=== PATIENT | female | born 1950 | race Caucasian/White ===

== ENCOUNTER 2017-11-29 08:07 | Inpatient (IN) | payer OTHER ==
[2017-11-29] MEDS: D5W-0.45 NACL + KCL 20 MEQ 1,000 ML IV (09:26)
[2017-11-29] MEDS: ONDANSETRON 4 MG INJ IV (09:26)
[2017-11-29] MEDS: HYDROmorphONE 1 MG/ML SYG IV (09:26)
[2017-11-29] MEDS ORDERED: ONDANSETRON 4 MG INJ IV ×2 (09:30→10:30)
[2017-11-29] MEDS ORDERED: ACETAMINOPHEN 325 MG TAB PO (09:30)
[2017-11-29] MEDS ORDERED: NITROGLYCERIN (SL) 0.4 MG TAB SL (10:00)
[2017-11-29] MEDS: WARFARIN 5 MG TAB PO ×2 (10:00→17:21)
[2017-11-29] MEDS: DOCUSATE SODIUM 100 MG CAP PO ×3 (10:00→22:05)
[2017-11-29] MEDS: FERROUS SULFATE (EC) 325 MG TAB PO ×3 (10:00→22:05)
[2017-11-29] MEDS: VENLAFAXINE (XR) 75 MG CAP PO ×2 (10:00→16:50)
[2017-11-29 10:48] LABS: ADD MAN DIFF? NO
[2017-11-29 10:51] LABS: BASOPHILS % 0.2 % (0.0-2.0); EOSINOPHILS # 0.1 10^3/ul (0.0-0.5); EOSINOPHILS % 1.2 % (0.0-7.0); HEMATOCRIT 38.9 % (37.0-47.0); HEMOGLOBIN 12.4 g/dl (12.0-16.0); LYMPHOCYTES # 0.6 10^3/ul (0.8-2.9); LYMPHOCYTES % 7.2 % (15.0-51.0); MEAN CORPUSCULAR HEMOGLOBIN 27.6 pg (29.0-33.0); MEAN CORPUSCULAR HGB CONC 31.9 g/dl (32.0-37.0); MEAN CORPUSCULAR VOLUME 86.6 fl (82.0-101.0); MEAN PLATELET VOLUME 10.6 fl (7.4-10.4); MONOCYTE # 0.2 10^3/ul (0.3-0.9); MONOCYTES % 2.9 % (0.0-11.0); NEUTROPHIL # 7.3 10^3/ul (1.6-7.5); NEUTROPHILS % 88.1 % (39.0-77.0); PLATELET COUNT 250 10^3/UL (140-415); RED BLOOD COUNT 4.49 10^6/ul (4.20-5.40); RED CELL DISTRIBUTION WIDTH 14.6 % (11.5-14.5)
[2017-11-29 10:51] LABS: WHITE BLOOD COUNT 8.3 10^3/ul (4.8-10.8)
[2017-11-29 11:12] LABS: INR 1.93; PROTIME 22.5 Sec (11.9-14.9); PT RATIO 1.8
[2017-11-29 11:13] LABS: ALANINE AMINOTRANSFERASE 39 IU/L (13-69); ALBUMIN 3.7 g/dl (3.3-4.9); ALKALINE PHOSPHATASE 65 IU/L (42-121); ANION GAP 13 (8-16); ASPARTATE AMINO TRANSFERASE 23 IU/L (15-46); BILIRUBIN,INDIRECT 1.3 mg/dl (0-1.1); BILIRUBIN,TOTAL 1.3 mg/dl (0.2-1.3); BLOOD UREA NITROGEN 11 mg/dl (7-20); CARBON DIOXIDE 27 mmol/L (21-31); CHLORIDE 108 mmol/L (97-110); CREATINE KINASE 58 IU/L (23-200); CREATININE 0.82 mg/dl (0.44-1.00); GLUCOSE 101 mg/dl (70-220); POTASSIUM 3.9 mmol/L (3.5-5.1); SODIUM 144 mmol/L (135-144); TOTAL PROTEIN 6.9 g/dl (6.1-8.1)
[2017-11-29 11:14] LABS: MAGNESIUM 1.9 mg/dl (1.7-2.5)
[2017-11-29 11:20] LABS: CK INDEX 1.8; CK-MB 1.02 ng/ml (0.0-2.4); TROPONIN-I 0.071 ng/ml (0.00-0.12)
[2017-11-29 11:21] LABS: TROPONIN-I 0.073 ng/ml (0.00-0.12)
[2017-11-29] MEDS: GABAPENTIN 300 MG CAP PO ×3 (13:00→22:05)
[2017-11-29] MEDS: METOCLOPRAMIDE 10 MG INJ IV ×2 (14:24→18:59)
[2017-11-29] MEDS: morphine 2 MG INJ IV (15:25)
[2017-11-29] MEDS: SOD CHLORIDE 0.9% 1,000 ML IV ×2 (15:34→23:00)
[2017-11-29 15:50] LABS: CREATINE KINASE 77 IU/L (23-200)
[2017-11-29 16:01] LABS: CK INDEX 1.2; CK-MB 0.95 ng/ml (0.0-2.4); TROPONIN-I 0.061 ng/ml (0.00-0.12)
[2017-11-29] MEDS: ACETAMINOPHEN 325 MG TAB PO (16:50)
[2017-11-29] MEDS ORDERED: DILTIAZEM-D5W 125MG/125ML DRIP 125 ML IV (18:00)
[2017-11-29] MEDS: METOPROLOL 5 MG INJ IV ×2 (19:01→21:35)
[2017-11-29] MEDS: ATORVASTATIN 10 MG TAB PO (21:00)
[2017-11-30] MEDS: ATORVASTATIN 10 MG TAB PO (00:13)
[2017-11-30] MEDS: METOCLOPRAMIDE 10 MG INJ IV ×2 (00:33→06:15)
[2017-11-30 05:48] LABS: ADD MAN DIFF? NO
[2017-11-30 05:54] LABS: ABNORMAL IP MESSAGE 1; BASOPHILS % 0.3 % (0.0-2.0); EOSINOPHILS % 0.6 % (0.0-7.0); HEMATOCRIT 36.5 % (37.0-47.0); HEMOGLOBIN 11.5 g/dl (12.0-16.0); LYMPHOCYTES # 0.3 10^3/ul (0.8-2.9); LYMPHOCYTES % 4.5 % (15.0-51.0); MEAN CORPUSCULAR HEMOGLOBIN 27.7 pg (29.0-33.0); MEAN CORPUSCULAR HGB CONC 31.5 g/dl (32.0-37.0); MEAN PLATELET VOLUME 11.2 fl (7.4-10.4); MONOCYTE # 0.2 10^3/ul (0.3-0.9); MONOCYTES % 3.4 % (0.0-11.0); NEUTROPHIL # 5.6 10^3/ul (1.6-7.5); NEUTROPHILS % 90.9 % (39.0-77.0); PLATELET COUNT 218 10^3/UL (140-415); RED BLOOD COUNT 4.15 10^6/ul (4.20-5.40); RED CELL DISTRIBUTION WIDTH 14.5 % (11.5-14.5)
[2017-11-30 05:54] LABS: WHITE BLOOD COUNT 6.2 10^3/ul (4.8-10.8)
[2017-11-30 05:55] LABS: POSITIVE DIFF @See below
[2017-11-30] MEDS: PANTOPRAZOLE (EC) 40 MG TAB PO (06:15)
[2017-11-30 06:19] LABS: ANION GAP 15 (8-16); BLOOD UREA NITROGEN 13 mg/dl (7-20); CARBON DIOXIDE 19 mmol/L (21-31); CHLORIDE 112 mmol/L (97-110); CREATININE 0.78 mg/dl (0.44-1.00); GLUCOSE 83 mg/dl (70-220); MAGNESIUM 1.9 mg/dl (1.7-2.5); POTASSIUM 3.7 mmol/L (3.5-5.1); SODIUM 142 mmol/L (135-144)
[2017-11-30 06:49] LABS: INR 1.94; PROTIME 22.6 Sec (11.9-14.9); PT RATIO 1.8
[2017-11-30 06:50] LABS: PARTIAL THROMBOPLASTIN TIME 64.3 Sec (25.0-35.0)
[2017-11-30] MEDS: ASPIRIN 81 MG TAB PO (08:53)
[2017-11-30] MEDS: LEVOTHYROXINE 50 MCG TAB PO (08:54)
[2017-11-30] MEDS: VENLAFAXINE (XR) 75 MG CAP PO (08:54)
[2017-11-30] MEDS: GABAPENTIN 300 MG CAP PO ×3 (08:54→20:38)
[2017-11-30] MEDS: DILTIAZEM (CD) 180 MG CAP PO (08:54)
[2017-11-30] MEDS: FERROUS SULFATE (EC) 325 MG TAB PO ×2 (08:54→20:38)
[2017-11-30] MEDS: ATENOLOL 25 MG TAB PO (08:55)
[2017-11-30] MEDS: DOCUSATE SODIUM 100 MG CAP PO ×2 (10:00→20:39)
[2017-11-30 10:36] LABS: LACTIC ACID 0.9 mmol/L (0.5-2.0)
[2017-11-30] MEDS: SOD CHLORIDE 0.9% 1,000 ML IV (16:35)
[2017-11-30] MEDS ORDERED: METOPROLOL 5 MG INJ IV (18:30)
[2017-11-30] MEDS: WARFARIN 5 MG TAB PO (20:38)
[2017-11-30] MEDS: ONDANSETRON 4 MG INJ IV (23:39)
[2017-12-01] MEDS: PANTOPRAZOLE (EC) 40 MG TAB PO (05:40)
[2017-12-01 06:24] LABS: ADD MAN DIFF? NO
[2017-12-01 06:25] LABS: WHITE BLOOD COUNT 3.3 10^3/ul (4.8-10.8)
[2017-12-01 06:25] LABS: ABNORMAL IP MESSAGE 1; BASOPHILS % 0.6 % (0.0-2.0); EOSINOPHILS # 0.2 10^3/ul (0.0-0.5); EOSINOPHILS % 5.2 % (0.0-7.0); HEMATOCRIT 33.4 % (37.0-47.0); HEMOGLOBIN 10.7 g/dl (12.0-16.0); LYMPHOCYTES # 0.5 10^3/ul (0.8-2.9); LYMPHOCYTES % 14.3 % (15.0-51.0); MEAN CORPUSCULAR HEMOGLOBIN 27.6 pg (29.0-33.0); MEAN CORPUSCULAR VOLUME 86.1 fl (82.0-101.0); MEAN PLATELET VOLUME 10.4 fl (7.4-10.4); MONOCYTE # 0.2 10^3/ul (0.3-0.9); MONOCYTES % 6.1 % (0.0-11.0); NEUTROPHIL # 2.4 10^3/ul (1.6-7.5); NEUTROPHILS % 73.5 % (39.0-77.0); PLATELET COUNT 206 10^3/UL (140-415); RED BLOOD COUNT 3.88 10^6/ul (4.20-5.40); RED CELL DISTRIBUTION WIDTH 14.3 % (11.5-14.5)
[2017-12-01 06:28] LABS: POSITIVE DIFF @See below
[2017-12-01] MEDS: LEVOTHYROXINE 50 MCG TAB PO (06:37)
[2017-12-01] MEDS: SOD CHLORIDE 0.9% 1,000 ML IV ×2 (06:37)
[2017-12-01 06:45] LABS: INR 2.49; PROTIME 27.6 Sec (11.9-14.9); PT RATIO 2.2
[2017-12-01 06:46] LABS: INR 2.12; PROTIME 24.3 Sec (11.9-14.9); PT RATIO 1.9
[2017-12-01 06:50] LABS: PARTIAL THROMBOPLASTIN TIME 74.2 Sec (25.0-35.0)
[2017-12-01 07:31] LABS: ALANINE AMINOTRANSFERASE 37 IU/L (13-69); ALBUMIN 3.3 g/dl (3.3-4.9); ALBUMIN/GLOBULIN RATIO 1.06; ALKALINE PHOSPHATASE 73 IU/L (42-121); ANION GAP 14 (8-16); ASPARTATE AMINO TRANSFERASE 27 IU/L (15-46); BILIRUBIN,INDIRECT 0.3 mg/dl (0-1.1); BILIRUBIN,TOTAL 0.3 mg/dl (0.2-1.3); BLOOD UREA NITROGEN 9 mg/dl (7-20); CALCIUM 8.7 mg/dl (8.4-10.2); CARBON DIOXIDE 22 mmol/L (21-31); CHLORIDE 110 mmol/L (97-110); CREATININE 0.68 mg/dl (0.44-1.00); GLUCOSE 92 mg/dl (70-220); MAGNESIUM 1.9 mg/dl (1.7-2.5); PHOSPHORUS 1.9 mg/dl (2.5-4.9); POTASSIUM 3.4 mmol/L (3.5-5.1); SODIUM 143 mmol/L (135-144); TOTAL PROTEIN 6.4 g/dl (6.1-8.1)
[2017-12-01 08:06] LABS: LACTIC ACID 1.1 mmol/L (0.5-2.0)
[2017-12-01] MEDS: FERROUS SULFATE (EC) 325 MG TAB PO ×2 (09:23→20:49)
[2017-12-01] MEDS: ASPIRIN 81 MG TAB PO (09:23)
[2017-12-01] MEDS: DOCUSATE SODIUM 100 MG CAP PO ×2 (09:24→21:03)
[2017-12-01] MEDS: GABAPENTIN 300 MG CAP PO ×3 (09:24→20:49)
[2017-12-01] MEDS: VENLAFAXINE (XR) 75 MG CAP PO (09:25)
[2017-12-01] MEDS: DILTIAZEM (CD) 180 MG CAP PO (09:28)
[2017-12-01] MEDS: ATENOLOL 25 MG TAB PO (09:29)
[2017-12-01] MEDS: CYANOCOBALAMIN 1000 MCG INJ SC (15:19)
[2017-12-01] MEDS: POTASSIUM CHLORIDE (SR) 20 MEQ TAB PO (17:55)
[2017-12-01] MEDS: WARFARIN 5 MG TAB PO (17:56)
[2017-12-01] MEDS: ATORVASTATIN 10 MG TAB PO (20:49)
[2017-12-01 22:37] LABS: ADD UMIC YES; UR ASCORBIC ACID NEGATIVE (NEGATIVE); UR BILIRUBIN (Dip) NEGATIVE (NEGATIVE); UR BLOOD (Dip) 1+ mg/dL (NEGATIVE); UR CLARITY CLEAR (CLEAR); UR COLOR YELLOW (YELLOW); UR GLUCOSE (Dip) NEGATIVE (NEGATIVE); UR KETONES (Dip) NEGATIVE (NEGATIVE); UR LEUKOCYTE ESTERASE (Dip) TRACE Leu/ul (NEGATIVE); UR MUCUS FEW /HPF (NONE SEEN); UR NITRITE (Dip) NEGATIVE (NEGATIVE); UR RBC 0 /HPF (0-5); UR SPECIFIC GRAVITY (Dip) 1.006 (1.003-1.030); UR TOTAL PROTEIN (Dip) NEGATIVE (NEGATIVE); UR UROBILINOGEN (Dip) NEGATIVE (NEGATIVE); UR WBC 1 /HPF (0-5)
[2017-12-01] MEDS: IBUPROFEN 600 MG TAB PO (23:52)
[2017-12-02] MEDS: PANTOPRAZOLE (EC) 40 MG TAB PO (06:30)
[2017-12-02] MEDS: LEVOTHYROXINE 50 MCG TAB PO (06:30)
[2017-12-02 07:54] LABS: INR 3.58; PROTIME 36.9 Sec (11.9-14.9); PT RATIO 2.9
[2017-12-02 07:56] LABS: PARTIAL THROMBOPLASTIN TIME 73.9 Sec (25.0-35.0)
[2017-12-02] MEDS: ASPIRIN 81 MG TAB PO (08:41)
[2017-12-02] MEDS: FERROUS SULFATE (EC) 325 MG TAB PO ×2 (08:43→20:18)
[2017-12-02] MEDS: VENLAFAXINE (XR) 75 MG CAP PO (08:43)
[2017-12-02] MEDS: DOCUSATE SODIUM 100 MG CAP PO (08:44)
[2017-12-02] MEDS: DILTIAZEM (CD) 180 MG CAP PO (08:44)
[2017-12-02] MEDS: ATENOLOL 25 MG TAB PO (08:44)
[2017-12-02] MEDS: GABAPENTIN 300 MG CAP PO ×3 (08:44→20:18)
[2017-12-02] MEDS: ATORVASTATIN 10 MG TAB PO (20:18)
[2017-12-02] MEDS: HYDROCODONE/APAP (5/325) TAB PO (21:49)
[2017-12-02] MEDS: ONDANSETRON 4 MG INJ IV (21:51)
[2017-12-03 06:29] LABS: ADD MAN DIFF? NO
[2017-12-03] MEDS: PANTOPRAZOLE (EC) 40 MG TAB PO (06:31)
[2017-12-03] MEDS: LEVOTHYROXINE 50 MCG TAB PO (06:31)
[2017-12-03 06:36] LABS: BASOPHILS % 0.7 % (0.0-2.0); EOSINOPHILS # 0.2 10^3/ul (0.0-0.5); EOSINOPHILS % 5.4 % (0.0-7.0); HEMATOCRIT 34.5 % (37.0-47.0); HEMOGLOBIN 10.9 g/dl (12.0-16.0); LYMPHOCYTES # 1.1 10^3/ul (0.8-2.9); LYMPHOCYTES % 26.1 % (15.0-51.0); MEAN CORPUSCULAR HEMOGLOBIN 27.8 pg (29.0-33.0); MEAN CORPUSCULAR HGB CONC 31.6 g/dl (32.0-37.0); MEAN PLATELET VOLUME 10.3 fl (7.4-10.4); MONOCYTE # 0.5 10^3/ul (0.3-0.9); MONOCYTES % 12.1 % (0.0-11.0); NEUTROPHIL # 2.4 10^3/ul (1.6-7.5); NEUTROPHILS % 55.5 % (39.0-77.0); PLATELET COUNT 223 10^3/UL (140-415); RED BLOOD COUNT 3.92 10^6/ul (4.20-5.40); RED CELL DISTRIBUTION WIDTH 14.5 % (11.5-14.5)
[2017-12-03 06:36] LABS: WHITE BLOOD COUNT 4.3 10^3/ul (4.8-10.8)
[2017-12-03 06:56] LABS: PROTIME 35.4 Sec (11.9-14.9); PT RATIO 2.8
[2017-12-03 06:58] LABS: INR 3.22; PROTIME 33.9 Sec (11.9-14.9); PT RATIO 2.6
[2017-12-03 07:28] LABS: PARTIAL THROMBOPLASTIN TIME 70.3 Sec (25.0-35.0)
[2017-12-03 07:40] LABS: ANION GAP 12 (8-16); BLOOD UREA NITROGEN 8 mg/dl (7-20); CALCIUM 8.9 mg/dl (8.4-10.2); CARBON DIOXIDE 28 mmol/L (21-31); CHLORIDE 110 mmol/L (97-110); CREATININE 0.64 mg/dl (0.44-1.00); GLUCOSE 92 mg/dl (70-220); POTASSIUM 3.5 mmol/L (3.5-5.1); SODIUM 146 mmol/L (135-144)
[2017-12-03] MEDS: VENLAFAXINE (XR) 75 MG CAP PO (09:07)
[2017-12-03] MEDS: FERROUS SULFATE (EC) 325 MG TAB PO ×2 (09:07→20:44)
[2017-12-03] MEDS: GABAPENTIN 300 MG CAP PO ×3 (09:07→20:44)
[2017-12-03] MEDS: ASPIRIN 81 MG TAB PO (09:07)
[2017-12-03] MEDS: ATENOLOL 25 MG TAB PO (09:08)
[2017-12-03] MEDS: DILTIAZEM (CD) 180 MG CAP PO (09:08)
[2017-12-03 12:15] LABS: PLATELET COUNT 235 10^3/UL (140-415)
[2017-12-03 12:31] LABS: INR 2.51; PROTIME 27.8 Sec (11.9-14.9); PT RATIO 2.2
[2017-12-03 12:32] LABS: PARTIAL THROMBOPLASTIN TIME 55.8 Sec (25.0-35.0)
[2017-12-03] MEDS: DOCUSATE SODIUM 100 MG CAP PO (12:33)
[2017-12-03] MEDS: HYDROCODONE/APAP (5/325) TAB PO (12:34)
[2017-12-03 12:58] LABS: THROMBIN TIME 13.3 SEC (13.8-19.1)
[2017-12-03] MEDS: ATORVASTATIN 10 MG TAB PO (20:44)
[2017-12-04] MEDS: PANTOPRAZOLE (EC) 40 MG TAB PO (05:24)
[2017-12-04 08:08] LABS: INR 1.74; PROTIME 20.7 Sec (11.9-14.9); PT RATIO 1.6
[2017-12-04] MEDS: LEVOTHYROXINE 50 MCG TAB PO (08:57)
[2017-12-04] MEDS: ASPIRIN 81 MG TAB PO (08:57)
[2017-12-04] MEDS: GABAPENTIN 300 MG CAP PO ×2 (08:58→14:45)
[2017-12-04] MEDS: FERROUS SULFATE (EC) 325 MG TAB PO (08:58)
[2017-12-04] MEDS: VENLAFAXINE (XR) 75 MG CAP PO (08:58)
[2017-12-04] MEDS: DOCUSATE SODIUM 100 MG CAP PO (08:58)
[2017-12-04] MEDS: DILTIAZEM (CD) 180 MG CAP PO (08:59)
[2017-12-04] MEDS: ATENOLOL 25 MG TAB PO (08:59)
[2017-12-04] MEDS: MAGNESIUM HYDROXIDE 30ML CUP PO (10:57)
[2017-12-04] MEDS: INFLUENZA VIRUS VACCINE 0.5 ML SYG IM* (13:12)
[2017-12-04] MEDS: NA PHOSPHATE/BIPHOS 133 ML ENEMA PR (14:45)
[2017-12-04] MEDS: WARFARIN 5 MG TAB PO (17:59)
== END 2017-12-04 18:22 | disposition home or self-care (01) | DRG 389 ==
LOC: E/R 08:07 → MS3 20:05 → MS4 11-30 18:50 → MS3 09:27
DX: K56.51 Intestinal adhesions [bands], with partial obstruction (principal); I13.0 Hypertensive heart and chronic kidney disease with heart failure and stage 1 through stage 4 chronic kidney disease, or unspecified chronic kidney disease; I48.2 Chronic atrial fibrillation; I50.32 Chronic diastolic (congestive) heart failure; G62.9 Polyneuropathy, unspecified; E55.9 Vitamin D deficiency, unspecified; E53.8 Deficiency of other specified B group vitamins; F32.9 Major depressive disorder, single episode, unspecified; N18.2 Chronic kidney disease, stage 2 (mild); K21.9 Gastro-esophageal reflux disease without esophagitis; E78.5 Hyperlipidemia, unspecified; E03.9 Hypothyroidism, unspecified; D63.1 Anemia in chronic kidney disease; K29.70 Gastritis, unspecified, without bleeding; J45.40 Moderate persistent asthma, uncomplicated; K59.09 Other constipation; K56.690 Other partial intestinal obstruction; Z79.82 Long term (current) use of aspirin; Z79.01 Long term (current) use of anticoagulants; Z86.718 Personal history of other venous thrombosis and embolism; Z90.49 Acquired absence of other specified parts of digestive tract
CPT/HCPCS: 80048; 80053; 80076; 81001; 82550; 82553; 83605; 83735; 84100; 84443; 84484; 85025; 85049; 85384; 85610; 85613; 85670; 85730; 87040; 87075; 87086; 93005; 93306; 96361; 96374; 96375; 96376; 99285-25

== ENCOUNTER 2018-03-16 08:23 | Inpatient (IN) | payer OTHER ==
[2018-03-16] MEDS ORDERED: ZOLPIDEM 5 MG TAB PO (11:30)
[2018-03-16] MEDS ORDERED: morphine 2 MG INJ IV (11:30)
[2018-03-16] MEDS ORDERED: NACL 0.9% 3 ML SYG IV (11:30)
[2018-03-16] MEDS ORDERED: BISACODYL (EC) 5 MG TAB PO (11:30)
[2018-03-16] MEDS ORDERED: HYDROCODONE/APAP (5/325) TAB PO (11:30)
[2018-03-16] MEDS ORDERED: DOCUSATE SODIUM 100 MG CAP PO (11:30)
[2018-03-16] MEDS ORDERED: ACETAMINOPHEN 325 MG TAB PO (11:30)
[2018-03-16] MEDS ORDERED: ONDANSETRON 4 MG INJ IV (11:30)
[2018-03-16] MEDS ORDERED: LOPERAMIDE 2 MG CAP PO (11:30)
[2018-03-16] MEDS ORDERED: NITROGLYCERIN (SL) 0.4 MG TAB SL (11:30)
[2018-03-16] MEDS: VENLAFAXINE (XR) 75 MG CAP PO (12:33)
[2018-03-16] MEDS: DILTIAZEM (CD) 240 MG CAP PO (12:34)
[2018-03-16] MEDS: GABAPENTIN 300 MG CAP PO ×2 (12:34→21:05)
[2018-03-16] MEDS: ATENOLOL 25 MG TAB PO (12:34)
[2018-03-16] MEDS: CEFTRIAXONE 1 GM/50 ML (PMX) 50 ML IVPB (12:37)
[2018-03-16 12:49] LABS: INR 3.06; PROTIME 32.5 Sec (11.9-14.9); PT RATIO 2.5
[2018-03-16 13:01] LABS: TROPONIN-I < 0.010 ng/ml (0.000-0.120)
[2018-03-16] MEDS ORDERED: WARFARIN 5 MG TAB PO (17:00)
[2018-03-16 19:24] LABS: TROPONIN-I < 0.010 ng/ml (0.000-0.120)
[2018-03-16] MEDS: ATORVASTATIN 10 MG TAB PO (21:05)
[2018-03-16] MEDS: morphine LIQ (10 MG/5 ML) CUP PO (23:05)
[2018-03-17 06:13] LABS: ADD MAN DIFF? NO
[2018-03-17 06:38] LABS: HEMOGLOBIN A1C 5.4 % (0-5.9)
[2018-03-17 06:44] LABS: INR 2.02; PROTIME 23.3 Sec (11.9-14.9); PT RATIO 1.8
[2018-03-17 07:07] LABS: ANION GAP 6 (8-16); BLOOD UREA NITROGEN 14 mg/dl (7-20); CALCIUM 9.2 mg/dl (8.4-10.2); CARBON DIOXIDE 28 mmol/L (21-31); CHLORIDE 111 mmol/L (97-110); GLUCOSE 93 mg/dl (70-220); PHOSPHORUS 4.2 mg/dl (2.5-4.9); POTASSIUM 4.1 mmol/L (3.5-5.1); SODIUM 141 mmol/L (135-144)
[2018-03-17 08:31] LABS: BASOPHILS % 0.7 % (0.0-2.0); EOSINOPHILS # 0.4 10^3/ul (0.0-0.5); EOSINOPHILS % 7.9 % (0.0-7.0); HEMATOCRIT 38.9 % (37.0-47.0); HEMOGLOBIN 12.5 g/dl (12.0-16.0); LYMPHOCYTES # 1.2 10^3/ul (0.8-2.9); LYMPHOCYTES % 27.5 % (15.0-51.0); MEAN CORPUSCULAR HEMOGLOBIN 27.7 pg (29.0-33.0); MEAN CORPUSCULAR HGB CONC 32.1 g/dl (32.0-37.0); MEAN CORPUSCULAR VOLUME 86.1 fl (82.0-101.0); MEAN PLATELET VOLUME 10.6 fl (7.4-10.4); MONOCYTE # 0.4 10^3/ul (0.3-0.9); MONOCYTES % 9.2 % (0.0-11.0); NEUTROPHIL # 2.4 10^3/ul (1.6-7.5); NEUTROPHILS % 54.5 % (39.0-77.0); PLATELET COUNT 233 10^3/UL (140-415); RED BLOOD COUNT 4.52 10^6/ul (4.20-5.40); RED CELL DISTRIBUTION WIDTH 13.2 % (11.5-14.5)
[2018-03-17 08:31] LABS: WHITE BLOOD COUNT 4.4 10^3/ul (4.8-10.8)
[2018-03-17] MEDS: LEVOTHYROXINE 50 MCG TAB PO (08:51)
[2018-03-17] MEDS: GABAPENTIN 300 MG CAP PO ×2 (08:53→12:55)
[2018-03-17] MEDS: VENLAFAXINE (XR) 75 MG CAP PO (08:53)
[2018-03-17] MEDS: CHOLECALCIFEROL 1,000 UNIT TAB PO (08:53)
[2018-03-17] MEDS: DILTIAZEM (CD) 240 MG CAP PO (08:53)
[2018-03-17] MEDS: ATENOLOL 25 MG TAB PO (08:53)
[2018-03-17] MEDS: POTASSIUM CHLORIDE (SR) 10 MEQ TAB PO (08:53)
[2018-03-17] MEDS: DOCUSATE SODIUM 100 MG CAP PO (08:54)
[2018-03-17] MEDS ORDERED: CHOLECALCIFEROL 1,000 UNIT TAB PO (09:00)
[2018-03-17] MEDS: CEFTRIAXONE 1 GM/50 ML (PMX) 50 ML IVPB (12:55)
== END 2018-03-17 16:47 | disposition home or self-care (01) | DRG 313 ==
LOC: MS4 08:23
PROVIDERS: Internal Medicine
DX: R07.9 Chest pain, unspecified (principal); N39.0 Urinary tract infection, site not specified; I48.2 Chronic atrial fibrillation; F32.9 Major depressive disorder, single episode, unspecified; E03.9 Hypothyroidism, unspecified; I10 Essential (primary) hypertension; G62.9 Polyneuropathy, unspecified; Z79.01 Long term (current) use of anticoagulants; Z90.49 Acquired absence of other specified parts of digestive tract
CPT/HCPCS: 80048; 83036; 83735; 84100; 84484; 85025; 85610